=== PATIENT | female | born 1985 | race Caucasian/White ===

== ENCOUNTER 2019-11-19 12:35 | Outpatient (CLI) | payer OTHER, SELFPAY ==
--- NOTE | ~2019-11-19 | US_ITS ---
EXAMINATION: US thyroid DATE: 11/19/2019 13:23 INDICATION: Nontoxic goiter TECHNIQUE: Multiple ultrasound images of the thyroid were obtained. COMPARISON: None. FINDINGS: The right thyroid lobe measures 5.3 x 2.3 x 1.7 cm. The left thyroid lobe measures 3.9 x 2.0 x 1.6 c m. 5 mm (TI-RADS 4, moderately suspicious , FNA if >=1.5 cm, annual followup is >1 cm) hypoechoic so lid nodule in the deep right thyroid lobe. There is normal echotexture, echogenicity and vascular ria w throughout the thyroid gland. IMPRESSION: 1. 5 mm right thyroid nodule which does not meet criteria for biopsy or follow-up. Recommend clinical followup with repeat imaging if there are changes on physical exam. Reviewed, dictated and finalized at location A. IMPRESSION: 1. 5 mm right thyroid nodule which does not meet criteria for biopsy or follow- up. Recommend clinical followup with repeat imaging if there are changes on phy sical exam.
== END 2019-11-19 12:36 | disposition home or self-care (01) ==
PROVIDERS: PCP Family Medicine; Visit Provider Internal Medicine Endocrinology, Diabetes & Metabolism
DX: E04.9 Nontoxic goiter, unspecified (principal)
CPT/HCPCS: 76536